=== PATIENT | male | born 1950 | race Caucasian/White ===

== ENCOUNTER → 2017-11-05 | Outpatient (CLI) | payer OTHER, BC | LOC: BMCIMAGING 07:56 | PROVIDERS: ATTEND Urology | DX: N40.1 Benign prostatic hyperplasia with lower urinary tract symptoms (principal) ==

== ENCOUNTER 2018-08-20 07:45 | Observation (INO) | payer OTHER, BC ==
[2018-08-20] MEDS ORDERED: ceFAZolin 2 GM/DEXTROSE 100 ML IV ONE (08:02)
[2018-08-20] MEDS ORDERED: LR 1,000 ML IV ONE (08:03)
[2018-08-20] MEDS ORDERED: NS 1,000 ML IV ONE (08:07)
--- NOTE | 2018-08-20 08:56 | PDANEPAE ---
ANE History of Present Illness BPH s/f TURP ANE Past Medical History - Cardiovascular History Hx Hypertension: Yes Hx Arrhythmias: No Hx Chest Pain: No Hx Coronary Artery / Peripheral Vascular Disease: No Hx CHF / Valvular Disease: No Hx Palpitations: No - Pulmonary History Hx COPD: No Hx Asthma/Reactive Airway Disease: No Hx Recent Upper Respiratory Infection: No Hx Oxygen in Use at Home: No Hx Sleep Apnea: No Sleep Apnea Screening Result - Last Documented: Positive - Neurologic History Hx Cerebrovascular Accident: No Hx Seizures: No Hx Dementia: No - Endocrine History Hx Diabetes: No - Renal History Hx Renal Disorders: Yes Renal History Comment: BPH. HX OF STONES. FUNCTION LOW END OF NORMAL - Liver History Hx Hepatic Disorders: No - Neurological & Psychiatric Hx Hx Neurological and Psychiatric Disorders: No - Cancer History Hx Cancer: Yes Cancer History Comment: KIDNEY - Congenital Disorder History Hx Congenital Disorders: No - GI History Hx Gastrointestinal Disorders: Yes Gastrointestinal History Comment: REFLUX. LAP BAND SURG - Other Health History Other Health History: TAKES PREVENATIVE HIV MEDICATION - Chronic Pain History Chronic Pain: Yes (LT THUMB) - Surgical History Prior Surgeries: UVPP 2002. LAP BAND 2007. LT CATARACT. KIDNEY UNKNOWN SIDE WEDGE RESECTION FOR CA. KNEE SCOPE. LUMBAR DISCKECTOMY ANE Review of Systems Review of Systems: - Exercise capacity METS (RN): 4 METS ANE Patient History - Allergies Allergies/Adverse Reactions: No Known Allergies Allergy (Unverified 08/18/18 12:10) - Home Medications Home medications: home medication list seen and reviewed Home Medications: Atenolol DAILY 08/18/18 [Last Taken 08/20/18 06:00] Doxazosin Mesylate DAILY 08/18/18 [Last Taken 08/20/18 06:00] Nexium DAILY 08/18/18 [Last Taken 08/20/18 06:00] Truvada 100 mg-150 mg Tablet DAILY 08/18/18 [Last Taken 08/20/18 06:00] Tylenol 08/20/18 [Last Taken 08/19/18] - NPO status NPO Status: no food or drink >8 hours NPO Since - Liquids (Date): 08/20/18 NPO Since - Liquids (Time): 06:00 NPO Since - Solids (Date): 08/19/18 NPO Since - Solids (Time): 19:00 - Anes Hx Anes Hx: no prior problems - Smoking Hx Smoking Status: Never smoked - Alcohol Use Alcohol Use: Occasionally - Family Anes Hx Family Anes Hx: none ANE Labs/Vital Signs - Vital Signs Blood Pressure: 116/81 Heart Rate: 49 Respiratory Rate: 18 O2 Sat (%): 97 Height: 177.8 cm Weight: 83.915 kg ANE Physical Exam - Airway Neck exam: FROM Mallampati Score: Class 2 Mouth exam: normal dental/mouth exam - Pulmonary Pulmonary: no respiratory distress - Cardiovascular Cardiovascular: regular rate and rhythym - ASA Status ASA Status: II ANE Anesthesia Plan Anesthesia Plan: GA w LMA
[2018-08-20] MEDS ORDERED: LIDOCAINE 2% JELLY 20 ML (UROJECT) ONE (09:05)
[2018-08-20] MEDS ORDERED: OPIUM/BELLADONNA ALKALO SUPP PR PRN (09:08)
[2018-08-20] MEDS ORDERED: HYDROCODONE/APAP 5/325 TAB PO PRN (09:08)
[2018-08-20] MEDS ORDERED: ONDANSETRON 4 MG/2 ML VIAL IVP PRN ×2 (09:08→10:20)
--- NOTE | 2018-08-20 09:08 | PDHPUP ---
History & Physical Update H&P update statement: This history and physical update is based on an assessment of the patient which was completed after admission or registration (within 24 hours), but prior to the surgery/procedure. H&P update: H&P reviewed & patient examined, no change in patient's condition since H&P completed
[2018-08-20] MEDS ORDERED: HYDROmorphONE/DILAUDID 1 MG/ML INJ IVP PRN (09:12)
[2018-08-20] MEDS ORDERED: OXYCODONE/APAP 5/325 TAB PO PRN (09:12)
[2018-08-20] MEDS ORDERED: fentaNYL 100 MCG/2 ML INJ ONE (09:20)
[2018-08-20] MEDS ORDERED: LIDOCAINE 2% 100 MG/5 ML SYR ONE (09:21)
[2018-08-20] MEDS ORDERED: ONDANSETRON 4 MG/2 ML VIAL ONE (09:21)
[2018-08-20] MEDS ORDERED: PROPOFOL/EMULSION 500 MG/50 ML BOTTLE IV ONE (09:21)
[2018-08-20] MEDS ORDERED: LIDOCAINE 2% JELLY 6 ML TOPICAL SYR ONE (09:21)
[2018-08-20] MEDS ORDERED: DEXAMETHASONE 4 MG/ML VIAL ONE ×2 (09:21)
[2018-08-20] MEDS ORDERED: ePHEDrine SULFATE 25 MG/5 ML SYR ONE (09:33)
[2018-08-20] MEDS ORDERED: OPIUM/BELLADONNA ALKALO SUPP PR ONE (09:46)
[2018-08-20] MEDS ORDERED: MEPERIDINE 25 MG/0.5 ML AMP IVP PRN (10:20)
[2018-08-20] MEDS ORDERED: ALBUTEROL 3 ML DEYVIAL IH PRN (10:20)
[2018-08-20] MEDS ORDERED: NALOXONE HCL 0.4 MG/ML INJ IVP PRN (10:20)
[2018-08-20] MEDS ORDERED: PHENYLEPHRINE HCL 100 MCG/ML SYR IVP PRN (10:20)
[2018-08-20] MEDS ORDERED: LR 500 ML IV PRN (10:20)
[2018-08-20] MEDS ORDERED: PROMETHAZINE HCL 25 MG/ML INJ IVP PRN (10:20)
[2018-08-20] MEDS ORDERED: ACETAMINOPHEN 500 MG TAB PO PRN (10:20)
[2018-08-20] MEDS ORDERED: DEXAMETHASONE 4 MG/ML VIAL IVP PRN (10:20)
[2018-08-20] MEDS ORDERED: METOCLOPRAMIDE 10 MG/2 ML VIAL IVP PRN (10:20)
[2018-08-20] MEDS ORDERED: LABETALOL HCL 5 MG/ML 20 ML MDV IVP PRN (10:20)
[2018-08-20] MEDS ORDERED: oxyCODONE IR 5 MG TAB PO PRN (10:20)
[2018-08-20] MEDS ORDERED: fentaNYL 100 MCG/2 ML INJ IVP PRN (10:20)
--- NOTE | 2018-08-20 10:40 | POSTOPPROG ---
Post Op Note Date of Operation: 08/20/18 Surgeon: Luna Jesus Anesthesiologist: [place]ito Anesthesia: GET(General Endotracheal) Pre-op Diagnosis: BPH w LUTs Post-op Diagnosis: same Indication: BPH w LUTs Procedure: cysto, TURP in saline Findings: large intravesicalmedian lobe Inf/Abcess present in the surg proc area at time of surgery?: No EBL: 50-100 Complications: none,pt tolerated procedure well Drains: Other (person) Specimen(s): prostate chips
--- NOTE | 2018-08-20 10:44 | POSTANESTH ---
Post Anesthetic Evaluation Cardiovascular Status: Normal, Stable Respiratory Status: Normal, Stable, Similar to Pre-op Cond. Level of Consciousness/Mental Status: Can Participate in Eval Pain Control: Adequate, Prn Tx Ordered Nausea/Vomiting Control: Adequate, Prn Tx Ordered Complications Possibly Related to Anesthesia: None Noted
--- NOTE | 2018-08-20 11:14 | GOP ---
[f rep st] OPERATIVE REPORT DATE OF OPERATION: 08/20/2018 SURGEON: Luna Jesus MD ANESTHESIA: General. ANESTHESIOLOGIST: Dr. Beckham PREOPERATIVE DIAGNOSIS: BPH with lower urinary tract symptoms. POSTOPERATIVE DIAGNOSIS: BPH with lower urinary tract symptoms. PROCEDURE PERFORMED: Cystoscopy and transurethral resection of prostate in saline. FINDINGS: A large intravesical median lobe. SPECIMENS: Prostate chips. INDICATIONS: The patient is a patient of mine who underwent a Rezum procedure over a year ago and his symptoms began to return in the last few weeks. He has started on alpha-antonia and was hoping to not have to be on alpha-antonia, so I re-scoped him in clinic and he had a median lobe that appeared to be bigger than it was even last year. I recommended a TURP procedure to resect this median lobe, which I feel is his main problem. He understood this and agreed to proceed. The risks were discussed, including bleeding, infection, pain, injury to the urethra, the bladder, the ureteral orifices, ureteral stricture, bladder neck contracture, need for subsequent procedures, need for overnight hospital stay, and possible discharge with a Beal catheter for temporary. He understood this and agreed to proceed. DESCRIPTION OF PROCEDURE: He was taken back to the cystoscopy suite, placed on a cystoscopy table in supine position. General anesthesia induced without complication. Time-out performed. Core measures satisfied, including placement of a Elvin Hugger, SCDs, and administration of 2 g Ancef antibiotics. He was brought to the end of the table, placed in the dorsal lithotomy position. All pressure points padded. Genitalia draped and prepped in the standard surgical fashion with Betadine. I used Wolfe sounds to gently dilate his urethral meatus. I then was able to advance the visual obturator without difficulty into the bladder with visual guidance. I again reconfirmed a very large intravesical median lobe and obstructing lateral lobes. I found the right and left ureteral orifices and I began to make a trough at the 5 o'clock position in the prostatic urethra, staying well away from the left ureteral orifice into the prostatic urethra and to just proximal to the veru. I did the same on the right at the 7 o'clock position. I then took down the median lobe and the posterior tissue to the veru , but did not violate the veru and did not resect distally to the veru. I then resected the left lateral lobe, and then, the right lateral lobe, and then the anterior tissue. I kept the veru in my visualization during the entire case and used electrocautery liberally to maintain hemostasis throughout. I used the Ellik evacuator to remove prostate chips during the procedure. I resected several times and used the Ellik evacuator several times. At the end of the procedure, hemostasis was excellent. He was wide open when sitting at the veru. All the chips had been removed from the bladder and the left and right ureteral orifice were evaluated and untouched with the resectoscope. At this point, I felt the procedure was complete. I removed the TURis resectoscope and then placed a 3-way Beal catheter, irrigated that manually, and irrigate was light pink. I then inflated the balloon to 35 cc and initiated continuous bladder irrigation. The irrigant was clear. Belladonna and opium were placed per rectum. The procedure was considered complete. He was awoken from anesthesia and transferred to PACU in good condition. COMPLICATIONS: None. DRAINS: A Beal. /[id number]/MODL MTDD
[2018-08-20] MEDS ORDERED: oxyCODONE IR 5 MG TAB ONE (11:21)
[2018-08-20] MEDS: D5W LR 1,000 ML IV SCH ×2 (12:17→21:45)
[2018-08-20] MEDS: ceFAZolin 2 GM/DEXTROSE 100 ML IV SCH ×2 (17:50→23:45)
[2018-08-20] MEDS: SENNOSIDES/DOCUSATE SODIUM TAB PO SCH (20:00)
[2018-08-20] MEDS ORDERED: diphenhydrAMINE 50 MG CAP PO SCH (21:00)
[2018-08-20] MEDS: DOXAZOSIN MESYLATE 4 MG TAB PO SCH (21:45)
[2018-08-21] MEDS: D5W LR 1,000 ML IV SCH (06:22)
--- NOTE | 2018-08-21 07:55 | SOAPPROG ---
SOAP Progress Note Assessment/Plan: Assessment: s/p TURP D1 Plan: CBI off, urine clear in tubing. Ambulate, fill and pull void trial. Update w post void bladder scans. If fails void trial, then nursing will place 18F coude and DC w person. Will determine follow up after results from fill and pull. 08/21/18 07:53 Subjective: Doing well. Has not eaten much due to lap band. HE ordered breakfast. Has stood but not ambulated yet. Objective: Vital Signs Temp Pulse Resp BP Pulse Ox 36.6 C 59 L 16 106/53 L 97 08/21/18 03:47 08/21/18 03:47 08/21/18 03:47 08/21/18 03:47 08/21/18 03:47 08/20/18 08/21/18 08/22/18 05:59 05:59 05:59 Intake Total 5000 Output Total 7700 Balance -2700 Gen NAD A&O CV regular Lungs Normal effort Abd soft Ext warm urine clear in tubing. CBI off. - Pending Discharge Pending Discharge Within 24 Hours: Yes Pending Discharge Date: 08/22/18 Pending Discharge Time: 12:00 ICD10 Worksheet Patient Problems: Problems Problem Status Onset BPH NOS w ur obs/LUTS Acute - ICD10 Problem Qualifiers (1) BPH NOS w ur obs/LUTS
[2018-08-21] MEDS ORDERED: EMTRICITABINE/TENOFOVIR 200MG/300MG TAB PO SCH (08:00)
--- NOTE | 2018-08-21 08:48 | ASMTLACE ---
LACE Length of stay for Answers: Less than 1 day current admission Acuity / Level of Answers: No Care: Did the patient have an inpatient admission? Comorbidities - select Answers: Opioid dependence all that apply / Chronic pain Other Notes: HTN, BPH # of Emergency department Answers: 0 visits in the last 6 months Score: 5 Date Signed: 08/21/2018 08:47 AM Electronically Signed By:Ariadna Barragan RN
[2018-08-21] MEDS: SENNOSIDES/DOCUSATE SODIUM TAB PO SCH (08:52)
[2018-08-21] MEDS: ceFAZolin 2 GM/DEXTROSE 100 ML IV SCH (08:53)
[2018-08-21] MEDS: DOXAZOSIN MESYLATE 4 MG TAB PO SCH (08:55)
[2018-08-21] MEDS ORDERED: ATENOLOL 50 MG TAB PO SCH (09:00)
[2018-08-21] MEDS ORDERED: PANTOPRAZOLE SODIUM 40 MG TAB PO SCH (09:00)
--- NOTE | 2018-08-21 09:24 | ASMTDCNOTE ---
Case Management Discharge Discharge Order Complete? Answers: Yes Patient to Obtain Answers: Independently Medications Transportation Arranged Answers: Family/Friends Family Notified Answers: Yes Discharge Comments Notes: Medically cleared for discharge s/p TURP . CM available for any needs. Date Signed: 08/21/2018 09:23 AM Electronically Signed By:Ariadna Barragan RN
[2018-08-21 11:45] VITALS: BP 114/71
[2018-08-21] MEDS ORDERED: ACETAMN/DIPHENHYDRAMINE 500/25MG TAB PO SCH (21:00)
--- NOTE | 2018-08-24 15:11 | GDS ---
[f rep st] DISCHARGE SUMMARY PROCEDURE PERFORMED: Transurethral resection of prostate in saline. PREOPERATIVE DIAGNOSIS: BPH with lower urinary tract symptoms. NAME OF PROCEDURE: BPH with lower urinary tract symptoms. HOSPITAL COURSE: The patient underwent the procedure without complication. He was admitted overnigh t on CBI (continuous bladder irrigation). His irrigation was weaned on postoperative day 1. It was clear, and I felt that removal of catheter was appropriate, so a voiding trial was trial was performe d, and he passed a voiding trial. He was discharged without a catheter and will follow up in my offi ce in 2-3 weeks for a postop check. He did well during the entire hospital stay, ambulated and had n o complaints. For the exam on the day of the discharge, please see my visit in the computer. MEDICINES AT DISCHARGE: Please see the medication list. FOLLOWUP: Follow up in 2-3 weeks in my office. /[id number]/MODL
== END 2018-08-21 14:30 | disposition home or self-care (01) ==
LOC: F3N 07:45 → EDSTATUS 09:45 → F1N 11:54
PROVIDERS: ADMIT Urology; ATTEND Urology
DX: N40.1 Benign prostatic hyperplasia with lower urinary tract symptoms (principal); I10 Essential (primary) hypertension; Z87.442 Personal history of urinary calculi
CPT/HCPCS: 52601; 88305; J0690; J1100; J2001; J2405; J2704; J3010